=== PATIENT | female | born 1990 | race Caucasian/White ===

== ENCOUNTER 2018-11-13 18:26 | Observation (INO) | payer OTHER ==
[2018-11-13] MEDS ORDERED: SODIUM CHLORIDE 0.9% 1,000 ML IV STA (18:35)
[2018-11-13] MEDS ORDERED: ONDANSETRON 4 MG/2 ML VIAL IVP STA (18:35)
[2018-11-13] MEDS ORDERED: TRIMETHOBENZAMIDE 300 MG CAP PO STA (18:44)
[2018-11-13] MEDS ORDERED: MORPHINE SULFATE 4 MG/ML SYRINGE IV STA ×2 (18:45→18:49)
[2018-11-13 19:03] LABS: Basophils % (A) 0 %; Eosinophils # (A) 0.2 k/uL (0-0.7); Eosinophils % (A) 3 %; HCT 32.8 % (34.0-46.0); HGB 10.6 gm/dL (11.4-16.0); Lymphocytes # (A) 2.1 k/uL (1.0-4.8); Lymphocytes % (A) 29 %; MCH 27.2 pg (25.0-35.0); MCHC 32.3 g/dL (31.0-37.0); MCV 84.3 fL (80.0-100.0); Mean Platelet Volume 7.4; Monocytes # (A) 0.4 k/uL (0-1.0); Monocytes % (A) 5 %; Neutrophils # (A) 4.5 k/uL (1.3-7.7); Neutrophils % (A) 62 %; Platelet Count 297 k/uL (150-450); RBC 3.89 m/uL (3.80-5.40); WBC 7.3 k/uL (3.8-10.6)
[2018-11-13 19:10] LABS: Amorphous Sediment,Urine Rare /hpf; Appearance,Urine Cloudy (Clear); Bilirubin,Urine Negative (Negative); Blood,Urine Negative (Negative); Color,Urine Yellow; Glucose,Urine (UA) Negative (Negative); Ketones,Urine Negative (Negative); Leukocyte Esterase,Urine Large (Negative); Mucus,Urine Many /hpf; Nitrite,Urine Negative (Negative); PH, Urine 6.5 (5.0-8.0); Protein,Urine Trace (Negative); RBC,Urine 2 /hpf (0-5); Specific Gravity,Urine 1.018 (1.001-1.035); Squamous Epithelial Cell,Urine 20 /hpf (0-4); Urobilinogen,Urine <2.0 mg/dL (<2.0); WBC,Urine 77 /hpf (0-5)
[2018-11-13 19:12] LABS: ALT 15 U/L (9-52); AST 18 U/L (14-36); African American GFR (CKD) >90 (>60 ml/min/1.73 sqM); Albumin 4.5 g/dL (3.5-5.0); Alcohol <10 mg/dL; Alkaline Phosphatase 62 U/L (38-126); Anion Gap 10 mmol/L; Blood Urea Nitrogen 13 mg/dL (7-17); Calcium 9.5 mg/dL (8.4-10.2); Carbon Dioxide 26 mmol/L (22-30); Chloride 106 mmol/L (98-107); Glucose 107 mg/dL (74-99); Non-African American GFR(CKD) >90 (>60 ml/min/1.73 sqM); Potassium 4.1 mmol/L (3.5-5.1); Sodium 142 mmol/L (137-145); Total Bilirubin 0.2 mg/dL (0.2-1.3); Total Protein 7.2 g/dL (6.3-8.2)
--- NOTE | 2018-11-13 19:53 | CT ---
EXAMINATION TYPE: CT abdomen pelvis w con DATE OF EXAM: 11/13/2018 COMPARISON: None HISTORY: abd pain, fever CT DLP: 1045.8 mGycm Automated exposure control for dose reduction was used. TECHNIQUE: Helical acquisition of images was performed from the lung bases through the pelvis. CONTRAST: Performed without Oral Contrast and with IV Contrast, patient injected with 100 mL of Isovue 300. FINDINGS: Lung bases are clear. There is no pleural effusion. Heart size is normal. There is no pericardial eff usion. Stomach appears normal. Liver spleen pancreas gallbladder appear normal. Bile ducts are not di lated. Spleen is top normal in size and measures 14 cm. There is no adrenal mass. Kidneys show satisfactory contrast opacification. There is no hydronephrosi s. Ureters are not dilated. Bladder distends smoothly. There is no inguinal hernia. There is no evide nce of a pelvic mass. Uterus is anteverted. There is small amount of free fluid in the pelvis. Uterus appears normal. There are multiple diverticula in the sigmoid colon. I see no definite diverticulitis. The appendix appears normal. Small bowel appears normal. There is no mesenteric edema. There is no as cites or free air. There is no sign of a bowel obstruction. Lumbar vertebra have normal spacing and a lignment. Bony pelvis is intact. I see no bony destructive process. IMPRESSION: NORMAL APPENDIX. THERE IS MILD MILD FREE FLUID IN THE PELVIS. NO EVIDENCE OF PANCREATITIS. MILD SIGMOID DIVERTICULOSIS IN THIS RELATIVELY YOUNG PATIENT WITHOUT EVIDENCE OF DIVERTICULITIS.
--- NOTE | 2018-11-13 19:58 | ED ---
General Adult HPI - General Source: patient, RN notes reviewed, old records reviewed Mode of arrival: ambulatory Limitations: no limitations <Santosh Mendoza - Last Filed: 11/13/18 19:57> <Bon Dunn - Last Filed: 11/13/18 20:23> - General Chief complaint: Abdominal Pain Stated complaint: Abd.pain/fever Time Seen by Provider: 11/13/18 18:35 - History of Present Illness Initial comments: 28-year-old female patient with prior history of alcohol abuse and chronic pancreatitis presents to ED for epigastric abdominal pain. Patient reports that she was admitted to [facility] for 2 days for Pancreatitis. Patient reports that she was discharged today, however continues to have nausea and vomiting. Patient also reports epigastric abdominal pain. Patient also reports that she had some subjective fevers and chills today. Patient denies any chest pain, shortness of breath. Patient states that she cannot be . Patient denies other complaints at this time. Systemic: Pt denies fatigue, fever/chills, rash. Pt denies weakness, night sweats, weight loss. Neuro: Pt denies headache, visual disturbances, syncope or pre-syncope. HEENT: Pt denies ocular discharge or irritation, otalgia, rhinorrhea, pharyngitis or notable lymphadenopathy. Cardiopulmonary: Pt denies chest pain, SOB, heart palpitations, dyspnea on exertion. : Pt denies dysuria, burning w/ urination, frequency/urgency. Denies new onset urinary or bowel incontinence. MSK: Pt denies myalgia, loss of strength or function in extremities. Neuro: Pt denies new onset weakness, paresthesias. (Santosh Mendoza) - Related Data Allergies Allergy/AdvReac Type Severity Reaction Status Date / Time ciprofloxacin [From Cipro] Allergy Dyspnea Verified 11/13/18 18:33 Review of Systems ROS Other: All systems not noted in ROS Statement are negative. <Santosh Mendoza - Last Filed: 11/13/18 19:57> ROS Other: All systems not noted in ROS Statement are negative. <Bon Dunn - Last Filed: 11/13/18 20:23> ROS Statement: Those systems with pertinent positive or pertinent negative responses have been documented in the HPI. Past Medical History Additional Past Medical History / Comment(s): chronic pancreatitis History of Any Multi-Drug Resistant Organisms: None Reported Past Surgical History: No Surgical Hx Reported Past Psychological History: Depression Smoking Status: Current every day smoker Past Alcohol Use History: None Reported Past Drug Use History: None Reported <Santosh Mendoza - Last Filed: 11/13/18 19:57> General Exam Limitations: no limitations <Santosh Mendoza - Last Filed: 11/13/18 19:57> - General Exam Comments Initial Comments: Constitutional: NAD, AOX3, Pt has pleasant affect. HEENT: NC/AT, trachea midline, neck supple, no lymphadenopathy. Posterior pharynx non erythematous, without exudates. External ears appear normal, without discharge. Mucous membranes moist. Eyes PERRLA, EOM intact. There is no scleral icterus. No pallor noted. Cardiopulmonary: RRR, no murmurs, rubs or gallops, no JVD noted. Lungs CTAB in anterior and posterior ortega. No peripheral edema. Abdominal exam: Abdomen soft and non-distended. Abdomen mildly tender in epigastric region. No other areas of abdominal tenderness. Bowel sounds active in LLQ. No hepatosplenomegaly. No ecchymosis Neuro: CN II-XII grossly intact. No nuchal rigidity. No raccon eyes, no bal sign, no hemotympanum. No cervical spinal tenderness. MSK: No posterior calf tenderness bilaterally, homans sign negative bilaterally. Posterior tibialis and radial pulse +2 bilaterally. Sensation intact in upper and lower extremities. Full active ROM in upper and lower extremities, 5/5 stregnth. (Santosh Mendoza) Course Vital Signs 11/13/18 18:28 Temperature 99 F Pulse Rate 82 Respiratory 18 Rate Blood Pressure 121/84 O2 Sat by Pulse 98 Oximetry Medical Decision Making - Lab Data Result diagrams: 11/13/18 18:50 11/13/18 18:50 <Santosh Mendoza - Last Filed: 11/13/18 19:57> - Lab Data Result diagrams: 11/13/18 18:50 11/13/18 18:50 <Bon Dunn - Last Filed: 11/13/18 20:23> - Medical Decision Making 28-year-old female patient history of hepatitis presents to ED for abdominal pain. Patient was discharged from [facility] after 2 days admission for pancreatitis. Patient will signs stable, afebrile. Physical exam displayed epigastric abdominal tenderness. Laboratory investigations revealed nonspecific CBC, CMP. Lipase 1200. UA contaminated however did display large leukocyte esterase and 77 white blood cells. HCG negative. Serum alcohol less than 10. CT and pelvis displayed normal appendix, mild free fluid in the pelvis, no evidence of pancreatitis. Mild sigmoid diverticulosis without diverticulitis. Patient will be admitted for acute pancreatitis. Case discussed with Dr. Dunn. (Santosh Mendoza) Case discussed with practitioner Uche Villatoro Chart reviewed. Case also discussed with Dr. Laws, who will admit covering for hospital call. (Bon Dunn) - Lab Data Lab Results 11/13/18 11/13/18 11/13/18 Range/Units 18:50 18:50 18:50 WBC 7.3 (3.8-10.6) k/uL RBC 3.89 (3.80-5.40) m/uL Hgb 10.6 L (11.4-16.0) gm/dL Hct 32.8 L (34.0-46.0) % MCV 84.3 (80.0-100.0) fL MCH 27.2 (25.0-35.0) pg MCHC 32.3 (31.0-37.0) g/dL RDW 14.0 (11.5-15.5) % Plt Count 297 (150-450) k/uL Neutrophils % 62 % Lymphocytes % 29 % Monocytes % 5 % Eosinophils % 3 % Basophils % 0 % Neutrophils # 4.5 (1.3-7.7) k/uL Lymphocytes # 2.1 (1.0-4.8) k/uL Monocytes # 0.4 (0-1.0) k/uL Eosinophils # 0.2 (0-0.7) k/uL Basophils # 0.0 (0-0.2) k/uL Sodium 142 (137-145) mmol/L Potassium 4.1 (3.5-5.1) mmol/L Chloride 106 (98-107) mmol/L Carbon Dioxide 26 (22-30) mmol/L Anion Gap 10 mmol/L BUN 13 (7-17) mg/dL Creatinine 0.68 (0.52-1.04) mg/dL Est GFR (CKD-EPI)AfAm >90 (>60 ml/min/1.73 sqM) Est GFR (CKD-EPI)NonAf >90 (>60 ml/min/1.73 sqM) Glucose 107 H (74-99) mg/dL Calcium 9.5 (8.4-10.2) mg/dL Total Bilirubin 0.2 (0.2-1.3) mg/dL AST 18 (14-36) U/L ALT 15 (9-52) U/L Alkaline Phosphatase 62 (38-126) U/L Total Protein 7.2 (6.3-8.2) g/dL Albumin 4.5 (3.5-5.0) g/dL Lipase 1209 H (23-300) U/L Urine Color Yellow Urine Appearance Cloudy H (Clear) Urine pH 6.5 (5.0-8.0) Ur Specific [place] 1.018 (1.001-1.035) Urine Protein Trace H (Negative) Urine Glucose (UA) Negative (Negative) Urine Ketones Negative (Negative) Urine Blood Negative (Negative) Urine Nitrite Negative (Negative) Urine Bilirubin Negative (Negative) Urine Urobilinogen <2.0 (<2.0) mg/dL Ur Leukocyte Esterase Large H (Negative) Urine RBC 2 (0-5) /hpf Urine WBC 77 H (0-5) /hpf Ur Squamous Epith Cells 20 H (0-4) /hpf Amorphous Sediment Rare H (None) /hpf Urine Mucus Many H (None) /hpf Urine HCG, Qual (Not Detectd) Serum Alcohol <10 mg/dL 11/13/18 Range/Units 18:50 WBC (3.8-10.6) k/uL RBC (3.80-5.40) m/uL Hgb (11.4-16.0) gm/dL Hct (34.0-46.0) % MCV (80.0-100.0) fL MCH (25.0-35.0) pg MCHC (31.0-37.0) g/dL RDW (11.5-15.5) % Plt Count (150-450) k/uL Neutrophils % % Lymphocytes % % Monocytes % % Eosinophils % % Basophils % % Neutrophils # (1.3-7.7) k/uL Lymphocytes # (1.0-4.8) k/uL Monocytes # (0-1.0) k/uL Eosinophils # (0-0.7) k/uL Basophils # (0-0.2) k/uL Sodium (137-145) mmol/L Potassium (3.5-5.1) mmol/L Chloride (98-107) mmol/L Carbon Dioxide (22-30) mmol/L Anion Gap mmol/L BUN (7-17) mg/dL Creatinine (0.52-1.04) mg/dL Est GFR (CKD-EPI)AfAm (>60 ml/min/1.73 sqM) Est GFR (CKD-EPI)NonAf (>60 ml/min/1.73 sqM) Glucose (74-99) mg/dL Calcium (8.4-10.2) mg/dL Total Bilirubin (0.2-1.3) mg/dL AST (14-36) U/L ALT (9-52) U/L Alkaline Phosphatase (38-126) U/L Total Protein (6.3-8.2) g/dL Albumin (3.5-5.0) g/dL Lipase (23-300) U/L Urine Color Urine Appearance (Clear) Urine pH (5.0-8.0) Ur Specific [place] (1.001-1.035) Urine Protein (Negative) Urine Glucose (UA) (Negative) Urine Ketones (Negative) Urine Blood (Negative) Urine Nitrite (Negative) Urine Bilirubin (Negative) Urine Urobilinogen (<2.0) mg/dL Ur Leukocyte Esterase (Negative) Urine RBC (0-5) /hpf Urine WBC (0-5) /hpf Ur Squamous Epith Cells (0-4) /hpf Amorphous Sediment (None) /hpf Urine Mucus (None) /hpf Urine HCG, Qual Not Detected (Not Detectd) Serum Alcohol mg/dL Disposition Is patient prescribed a controlled substance at d/c from ED?: No <Santosh Mendoza - Last Filed: 11/13/18 19:57> <Bon Dunn - Last Filed: 11/13/18 20:23> Clinical Impression: Pancreatitis Disposition: ADMITTED IP TO [facility] Condition: Serious Referrals: None,Stated [Primary Care Provider] - 1-2 days
[2018-11-13] MEDS ORDERED: NALOXONE 0.4 MG/ML 1 ML VIAL IV PRN (20:43)
[2018-11-13] MEDS: SODIUM CHLORIDE 0.9% 1,000 ML IV SCH (20:59)
[2018-11-13] MEDS ORDERED: diphenhydrAMINE 50 MG/ML 1 ML VIAL IVP STA (21:01)
[2018-11-13] MEDS: MORPHINE SULFATE 4 MG/ML SYRINGE IV PRN (21:08)
[2018-11-13] MEDS: ONDANSETRON 4 MG/2 ML VIAL IVP PRN (21:10)
[2018-11-13 22:27] VITALS: RESP 16
[2018-11-13] MEDS ORDERED: traZODone HCL 50 MG TAB PO SCH (23:00)
[2018-11-13] MEDS: lamoTRIgine 100 MG TAB PO SCH (23:29)
[2018-11-14] MEDS: MORPHINE SULFATE 4 MG/ML SYRINGE IV PRN ×3 (01:21→09:25)
[2018-11-14] MEDS: SODIUM CHLORIDE 0.9% 1,000 ML IV SCH ×3 (03:33→12:54)
[2018-11-14] MEDS: ONDANSETRON 4 MG/2 ML VIAL IVP PRN (05:05)
[2018-11-14 09:24] LABS: Basophils % (A) 0 %; Eosinophils # (A) 0.2 k/uL (0-0.7); Eosinophils % (A) 4 %; HCT 31.1 % (34.0-46.0); HGB 9.7 gm/dL (11.4-16.0); Lymphocytes # (A) 2.6 k/uL (1.0-4.8); Lymphocytes % (A) 46 %; MCH 27.1 pg (25.0-35.0); MCHC 31.2 g/dL (31.0-37.0); MCV 86.6 fL (80.0-100.0); Mean Platelet Volume 7.4; Monocytes # (A) 0.3 k/uL (0-1.0); Monocytes % (A) 5 %; Neutrophils # (A) 2.4 k/uL (1.3-7.7); Neutrophils % (A) 43 %; Platelet Count 215 k/uL (150-450); RBC 3.59 m/uL (3.80-5.40); RDW 14.1 % (11.5-15.5); WBC 5.6 k/uL (3.8-10.6)
[2018-11-14] MEDS: lamoTRIgine 100 MG TAB PO SCH (09:25)
[2018-11-14 09:49] LABS: ALT 20 U/L (9-52); AST 15 U/L (14-36); African American GFR (CKD) >90 (>60 ml/min/1.73 sqM); Albumin 3.6 g/dL (3.5-5.0); Alkaline Phosphatase 57 U/L (38-126); Anion Gap 7 mmol/L; Blood Urea Nitrogen 9 mg/dL (7-17); Calcium 8.7 mg/dL (8.4-10.2); Carbon Dioxide 24 mmol/L (22-30); Chloride 111 mmol/L (98-107); Glucose 79 mg/dL (74-99); Non-African American GFR(CKD) >90 (>60 ml/min/1.73 sqM); Potassium 3.7 mmol/L (3.5-5.1); Sodium 142 mmol/L (137-145); Total Bilirubin <0.1 mg/dL (0.2-1.3); Total Protein 6.1 g/dL (6.3-8.2)
[2018-11-14] MEDS ORDERED: PANTOPRAZOLE 40 MG TABLET PO SCH (10:30)
[2018-11-14] MEDS ORDERED: ONDANSETRON 4 MG/2 ML VIAL IVP PRN (10:30)
[2018-11-14] MEDS ORDERED: CITALOPRAM HYDROBROMIDE 20 MG TAB PO SCH (10:30)
[2018-11-14] MEDS ORDERED: clonazePAM 1 MG TAB PO PRN (10:32)
--- NOTE | 2018-11-14 11:23 | P.CONS ---
History of Present Illness - Reason for Consult Consult date: 11/14/18 Abdominal pain pancreatitis Requesting physician: Bella Laws - Chief Complaint Abdominal pain - History of Present Illness 28 year old female transferred from [place] abdominal pain with a reported history of chronic relapsing alcohol pancreatitis anxiety depression previous cocaine marijuana usage admitted with acute abdominal pain. Patient had 6 episodes of pancreatitis for the last 18-24 months. She's had 3 episodes since beginning of a year. Serum lipase elevated 1209. Amylase not obtained. LFTs within normal limits. No fevers. CT abdomen and pelvis reported no evidence of acute pancreatitis. White count 7.3. Hemoglobin 10.6. Review of Systems Constitutional: Denies fever, chills, sweats, weight gain, or loss. HEENT: Negative for migraines, blurred vision or loss, earaches, drainage, tinnitus, oral mucosal lesions, dysphagia, or odynophagia. CARDIAC: Negative for chest pain, arrhythmias, or palpitation. RESPIRATORY: Negative for shortness of breath, hemoptysis, cough, or sputum production. GI: See HPI for pertinent findings. : Negative for hematuria, urgency, frequency, polyuria, or dysuria. GYNc: Denies possibility of . Negative vaginal discharge. MUSCULOSKELETAL: Negative for muscle aches, swelling, arthritis, and arthralgias. NEUROLOGIC: Negative for stroke or TIA. ENDOCRINE: Negative for thyroid problems. SKIN: Negative for rash or itching. PSYCHIATRIC: Negative history for depression and anxiety Past Medical History Additional Past Medical History / Comment(s): chronic pancreatitis History of Any Multi-Drug Resistant Organisms: None Reported Past Surgical History: No Surgical Hx Reported Past Psychological History: Anxiety, Depression Smoking Status: Current every day smoker Past Alcohol Use History: None Reported Past Drug Use History: Cocaine, Marijuana Additional Drug Use History / Comment(s): pt smokes marijuana occasionally Medications and Allergies Home Medications Medication Instructions Recorded Confirmed Type Citalopram Hydrobromide [CeleXA] 40 mg PO DAILY 11/13/18 11/13/18 History Ibuprofen [Motrin] 800 mg PO TID PRN 11/13/18 11/13/18 History Omeprazole [PriLOSEC] 20 mg PO AC-BID 11/13/18 11/13/18 History Prazosin [Minipress] 3 mg PO HS 11/13/18 11/13/18 History clonazePAM [KlonoPIN] 1 mg PO BID PRN 11/13/18 11/13/18 History lamoTRIgine [LaMICtal] 100 mg PO BID 11/13/18 11/13/18 History traZODone HCL 150 mg PO HS 11/13/18 11/13/18 History Allergies Allergy/AdvReac Type Severity Reaction Status Date / Time ciprofloxacin [From Cipro] Allergy Dyspnea Verified 11/13/18 20:42 Physical Exam Vitals: Vital Signs Temp Pulse Pulse Resp BP BP Pulse Ox 11/14/18 05:00 98.1 F 58 L 16 127/69 99 11/13/18 21:45 99.1 F 68 16 123/85 98 11/13/18 21:13 98.5 F 68 18 122/80 98 11/13/18 20:22 99.2 F 71 18 106/66 97 11/13/18 18:28 99 F 82 18 121/84 98 Intake and Output 11/13/18 11/14/18 11/14/18 22:59 06:59 14:59 Other: # Voids 2 Weight 90.265 kg General appearance: The patient is alert, oriented, in no acute distress. HET: Head is normocephalic and atraumatic. Pupils are equal and reactive. Oropharynx is clear without lesions. Neck: Supple without lymphadenopathy. Trachea midline. Heart: S1 S2. Regular rate and rhythm. Lungs: No crackles or wheezes are heard. Abdomen: Soft, mild bilateral upper abdominal tenderness, nondistended with bowel sounds. No peritoneal signs. No palpable organomegaly or masses. Extremities: Normal skin color and turgor. No cyanosis, rash, ulceration, clubbing, or edema. Radial and pedal pulses are 2/4 bilaterally. Neurological: No focal deficits. Strength and sensation are grossly intact. Results CBC & Chem 7: 11/14/18 08:43 11/14/18 08:43 Labs: Abnormal Lab Results - Last 24 Hours (Table) 11/13/18 11/13/18 11/13/18 Range/Units 18:50 18:50 18:50 Hgb 10.6 L (11.4-16.0) gm/dL Hct 32.8 L (34.0-46.0) % Glucose 107 H (74-99) mg/dL Lipase 1209 H (23-300) U/L Urine Appearance Cloudy H (Clear) Urine Protein Trace H (Negative) Ur Leukocyte Esterase Large H (Negative) Urine WBC 77 H (0-5) /hpf Ur Squamous Epith Cells 20 H (0-4) /hpf Amorphous Sediment Rare H (None) /hpf Urine Mucus Many H (None) /hpf Microbiology - Last 24 Hours (Table) 11/13/18 20:22 Urine Culture - Preliminary Urine,Voided CT scan - abdomen: report reviewed (Dr. Li) Assessment and Plan (1) Abdominal pain Narrative/Plan: 28 year female history reported chronic relapsing alcohol pancreatitis admitted with acute on chronic relapsing alcohol pancreatitis, acute abdominal pain elevated lipase normal LFTs CT reported no evidence of acute pancreatitis. Current Visit: Yes Status: Acute Code(s): R10.9 - UNSPECIFIED ABDOMINAL PAIN SNOMED Code(s): 72514595 Plan: 1. Symptomatic supportive measures. Advance diet as tolerated once abdominal pain improves. Daily BMP lipase. Alcohol abstinence. IV hydration. GI prophylaxis. Discharge per medicine. We'll be available for questions or concerns. Thank you for this kind referral and the opportunity to participate in the care of your patient. This consultation was discussed with Dr. Li. The impression and plan of care have been directed as dictated.
[2018-11-14 13:09] VITALS: BP 130/86; PULSE 63; TEMP 98.9
--- NOTE | 2018-11-14 15:12 | P.HPIM ---
History of Present Illness 28-year-old female Jaja history of pancreas came in with epigastric abdominal pain have seen the patient at the [facility] patient's symptoms improved and patient was subsequently discharged and her lipase is a was elevated when she was at the [facility] which has come down to around 800 upon discharge. Patient was doing okay without any nausea vomiting but [facility] repeated her lipase which is still elevated because of which patient was sent to ER patient amalaise and was not done and patient lipase is 1200 here, patient doesn't have any nausea vomiting. Patient all the compensative severe abdominal pain. Patient does have narcotic seeking behavior she's not a reliable historian because of that and patient the constantly 6 opiates. Her abdomen is soft patient is having nausea vomiting. Lipase is repeated today which is 500 patient was evaluated by neurology recommended to advance the diet and patient is cleared for discharge. Patient's diet will be advanced and patient will be discharged today as requested [facility] to reach me they have any questions about the her medical stability. Patient is medically stable to be admitted to [facility]. Diana gnosis of pancreatitis is made on overall picture rather than just looking at 1 lab like lipase. Patient some Motrin was discontinued because of concerns of gastritis and patient can use Tylenol for pain will not require any high dose high-strength opiates for her pain. CT of the abdomen did not show any evidence of pancreatitis I frankly do not believe patient has acute pancreatitis at this time. Patient was quite belligerent when when I stopped her morphine and that she was even using F word Review of Systems REVIEW OF SYSTEMS: CONSTITUTIONAL: No fever, no malaise, no fatigue. HEENT: No recent visual problems or hearing problems. Denied any sore throat. CARDIOVASCULAR: No chest pain, orthopnea, PND, no palpitations, no syncope. PULMONARY: No shortness of breath, no cough, no hemoptysis. GASTROINTESTINAL: No diarrhea, no nausea, no vomiting, NEUROLOGICAL: No headaches, no weakness, no numbness. HEMATOLOGICAL: Denies any bleeding or petechiae. GENITOURINARY: Denies any burning micturition, frequency, or urgency. MUSCULOSKELETAL/RHEUMATOLOGICAL: Denies any joint pain, swelling, or any muscle pain. ENDOCRINE: Denies any polyuria or polydipsia. The rest of the 14-point review of systems is negative. Past Medical History Additional Past Medical History / Comment(s): chronic pancreatitis History of Any Multi-Drug Resistant Organisms: None Reported Past Surgical History: No Surgical Hx Reported Past Psychological History: Anxiety, Depression Smoking Status: Current every day smoker Past Alcohol Use History: None Reported Past Drug Use History: Cocaine, Marijuana Additional Drug Use History / Comment(s): pt smokes marijuana occasionally Medications and Allergies Home Medications Medication Instructions Recorded Confirmed Type Citalopram Hydrobromide [CeleXA] 40 mg PO DAILY 11/13/18 11/13/18 History Omeprazole [PriLOSEC] 20 mg PO AC-BID 11/13/18 11/13/18 History Prazosin [Minipress] 3 mg PO HS 11/13/18 11/13/18 History clonazePAM [KlonoPIN] 1 mg PO BID PRN 11/13/18 11/13/18 History lamoTRIgine [LaMICtal] 100 mg PO BID 11/13/18 11/13/18 History traZODone HCL 150 mg PO HS 11/13/18 11/13/18 History Acetaminophen [Acetaminophen ER] 650 mg PO QID PRN #30 tablet.er 11/14/18 Rx Allergies Allergy/AdvReac Type Severity Reaction Status Date / Time ciprofloxacin [From Cipro] Allergy Dyspnea Verified 11/13/18 20:42 Physical Exam Vitals: Vital Signs Temp Pulse Pulse Resp BP BP Pulse Ox 11/14/18 13:09 98.9 F 63 16 130/86 98 11/14/18 05:00 98.1 F 58 L 16 127/69 99 11/13/18 21:45 99.1 F 68 16 123/85 98 11/13/18 21:13 98.5 F 68 18 122/80 98 11/13/18 20:22 99.2 F 71 18 106/66 97 11/13/18 18:28 99 F 82 18 121/84 98 Intake and Output 11/14/18 11/14/18 11/14/18 06:59 14:59 22:59 Other: # Voids 2 PHYSICAL EXAMINATION: GENERAL: The patient is alert and oriented x3, not in any acute distress. Well developed, well nourished. HEENT: Pupils are round and equally reacting to light. EOMI. No scleral icterus. No conjunctival pallor. Normocephalic, atraumatic. No pharyngeal erythema. No thyromegaly. CARDIOVASCULAR: S1 and S2 present. No murmurs, rubs, or gallops. PULMONARY: Chest is clear to auscultation, no wheezing or crackles. ABDOMEN: Soft, nontender, nondistended, normoactive bowel sounds. No palpable organomegaly. MUSCULOSKELETAL: No joint swelling or deformity. EXTREMITIES: No cyanosis, clubbing, or pedal edema. NEUROLOGICAL: Gross neurological examination did not reveal any focal deficits. SKIN: No rashes. Results CBC & Chem 7: 11/14/18 08:43 11/14/18 08:43 Labs: Abnormal Lab Results - Last 24 Hours (Table) 11/13/18 11/13/18 11/13/18 Range/Units 18:50 18:50 18:50 RBC (3.80-5.40) m/uL Hgb 10.6 L (11.4-16.0) gm/dL Hct 32.8 L (34.0-46.0) % Chloride (98-107) mmol/L Glucose 107 H (74-99) mg/dL Total Bilirubin (0.2-1.3) mg/dL Total Protein (6.3-8.2) g/dL Lipase 1209 H (23-300) U/L Urine Appearance Cloudy H (Clear) Urine Protein Trace H (Negative) Ur Leukocyte Esterase Large H (Negative) Urine WBC 77 H (0-5) /hpf Ur Squamous Epith Cells 20 H (0-4) /hpf Amorphous Sediment Rare H (None) /hpf Urine Mucus Many H (None) /hpf 11/14/18 11/14/18 Range/Units 08:43 08:43 RBC 3.59 L (3.80-5.40) m/uL Hgb 9.7 L (11.4-16.0) gm/dL Hct 31.1 L (34.0-46.0) % Chloride 111 H (98-107) mmol/L Glucose (74-99) mg/dL Total Bilirubin <0.1 L (0.2-1.3) mg/dL Total Protein 6.1 L (6.3-8.2) g/dL Lipase 577 H (23-300) U/L Urine Appearance (Clear) Urine Protein (Negative) Ur Leukocyte Esterase (Negative) Urine WBC (0-5) /hpf Ur Squamous Epith Cells (0-4) /hpf Amorphous Sediment (None) /hpf Urine Mucus (None) /hpf Microbiology - Last 24 Hours (Table) 11/13/18 20:22 Urine Culture - Preliminary Urine,Voided Thrombosis Risk Factor Assmnt - Choose All That Apply Any of the Below Risk Factors Present?: No Other Risk Factors: No Other congenital or acquired thrombophilia - If yes, enter type in comment: No Thrombosis Risk Factor Assessment Level: Very Low Risk Assessment and Plan Plan: -Abdominal pain: I believe patient has narcotic seeking behavior and opiate seeking behavior no evidence of acute pancreatitis on the CAT scan lipase is m inimally elevated which has come down this is a nonspecific elevation of lipase patient will not need to be hospitalized any more will advance the diet and patient will be discharged and was asked to follow-up with drug rehabitation program. Alcohol abuse history-cocaine abuse history and nicotine abuse. -Depression
--- NOTE | 2018-11-14 15:14 | P.DS ---
Providers Date of admission: 11/13/18 20:22 Attending physician: Bella Laws Primary care physician: Stated None Hospital Course: Please up her to my dictation of [facility] for further details Patient Condition at Discharge: Serious Plan - Discharge Summary New Discharge Prescriptions: New Acetaminophen [Acetaminophen ER] 650 mg PO QID PRN #30 tablet.er PRN Reason: Pain Continue traZODone HCL 150 mg PO HS clonazePAM [KlonoPIN] 1 mg PO BID PRN PRN Reason: Anxiety Prazosin [Minipress] 3 mg PO HS lamoTRIgine [LaMICtal] 100 mg PO BID Omeprazole [PriLOSEC] 20 mg PO AC-BID Citalopram Hydrobromide [CeleXA] 40 mg PO DAILY Discontinued Ibuprofen [Motrin] 800 mg PO TID PRN PRN Reason: Pain Discharge Medication List Citalopram Hydrobromide [CeleXA] 40 mg PO DAILY 11/13/18 [History] Omeprazole [PriLOSEC] 20 mg PO AC-BID 11/13/18 [History] Prazosin [Minipress] 3 mg PO HS 11/13/18 [History] clonazePAM [KlonoPIN] 1 mg PO BID PRN 11/13/18 [History] lamoTRIgine [LaMICtal] 100 mg PO BID 11/13/18 [History] traZODone HCL 150 mg PO HS 11/13/18 [History] Acetaminophen [Acetaminophen ER] 650 mg PO QID PRN #30 tablet.er 11/14/18 [Rx] Follow up Appointment(s)/Referral(s): None,Stated [Primary Care Provider] - 1-2 days Patient Instructions/Handouts: Pancreatitis (DC) Discharge Disposition: HOME SELF-CARE
[2018-11-14] MEDS ORDERED: PRAZOSIN 1 MG CAP PO SCH (21:00)
== END 2018-11-14 15:21 | disposition home or self-care (01) ==
LOC: EC 18:26 → 4MS4W 20:22 → INTOOBSV 20:22 → 4MS4W 21:05 → UNDODISIN 11-14 15:21
PROVIDERS: ADMIT Internal Medicine; ATTEND Internal Medicine
DX: R10.13 Epigastric pain (principal); Z76.5 Malingerer [conscious simulation]; K86.1 Other chronic pancreatitis; F10.10 Alcohol abuse, uncomplicated; F32.9 Major depressive disorder, single episode, unspecified; F41.9 Anxiety disorder, unspecified; K57.30 Diverticulosis of large intestine without perforation or abscess without bleeding; F12.90 Cannabis use, unspecified, uncomplicated; R74.8 Abnormal levels of other serum enzymes; F17.200 Nicotine dependence, unspecified, uncomplicated; Z87.898 Personal history of other specified conditions; Z88.1 Allergy status to other antibiotic agents; Z79.899 Other long term (current) drug therapy
CPT/HCPCS: 96376 ×2; 96361; 96374; 96375; 99285; 36415; 80053 ×2; 83690 ×2; 85025 ×2; 81001; 81025; 87086; 74177; G0378 ×2; G0480; J2270 ×2; J1200; J2405 ×2; Q9967; 80320